=== PATIENT | male | born 2005 | race Two or more races ===

== ENCOUNTER 2025-03-15 01:35 | Emergency (ER) | payer OTHER ==
[~2025-03-15] VITALS: Ht 167.6 cm; Wt 58.1 kg
[2025-03-15] MEDS ORDERED: DIPHENHYDRAMINE HCL 50 MG/ML VIAL 1ML ONE (02:44)
[2025-03-15] MEDS ORDERED: DIPHENHYDRAMINE HCL 50 MG/ML VIAL 1ML IV ONE (02:45)
[2025-03-15] MEDS ORDERED: 0.9 % SODIUM CHLORIDE 1,000 ML IV SCH (02:45)
== END 2025-03-15 04:56 | disposition home or self-care (01) ==
LOC: ER 01:36
DX: F12.120 Cannabis abuse with intoxication, uncomplicated (principal); R53.81 Other malaise